=== PATIENT | male | born 1995 | race Caucasian/White ===

== ENCOUNTER 2020-02-11 19:09 | Emergency (ER) | payer BC ==
[2020-02-11] MEDS ORDERED: HYDROmorphone 0.5 MG/0.5 ML Syringe IVPUSH ONE ×2 (19:34→20:38)
[2020-02-11] MEDS ORDERED: Ondansetron 4 MG/2 ML SDV IVPUSH ONE (19:34)
--- NOTE | 2020-02-11 19:39 | EDM.PDOC ---
ED HPI GENERAL MEDICAL PROBLEM - General Chief Complaint: Abdominal Pain Stated Complaint: ABDOMINAL PAIN/DIZZY Time Seen by Provider: 02/11/20 19:33 Source of Information: Reports: Patient History Limitations: Reports: No Limitations - History of Present Illness INITIAL COMMENTS - FREE TEXT/NARRATIVE: 24-year-old male presents to the ED complaining of diffuse abdominal pain pr imarily infraumbilical. He states he woke up feeling fine this morning. He went to work and approximately between 10 and 11:00 this morning he developed chills he had a turn on the heat in his vehicle and then the air conditioning for a while. He did eat a small lunch as he thought it might help with the discomfort. He has associated nausea but no vomiting. Bowels did move earlier this morning and were normal without blood. Patient had a laparoscopic appendectomy done in [place] in August of this year. It was uncomplicated without rupture. He left work early today due to the gradually worsening lower abdominal pain. He reports that he is walking hunched over and slowly like an old man. Difficult to get in and out of the vehicle and every bump in the road hurts. Even a lap belt of his seatbelt did not feel good across his lower abdomen. He feels some discomfort in the suprapubic area with voiding. This is just irritation of the posterior aspect of the dome of his bladder. Onset: Today, Sudden Onset Date: 02/11/20 Onset Time: 10:30 Duration: Hour(s):, Getting Worse Location: Reports: Abdomen (Diffuse abdominal pain worse infraumbilically. Seem to start in the right lower quadrant and then moved across the entire lower abdomen. Also feels that slightly in his flanks bilaterally.) Quality: Reports: Ache, Other Severity: Moderate Improves with: Reports: Rest (8 out of 10.) Worsens with: Reports: Movement Context: Reports: Other (Spontaneous occurrence.). Denies: Activity, Exercise, Lifting, Sick Contact, Trauma Associated Symptoms: Reports: Fever/Chills (Fever and chills starting about 1030 this morning.), Loss of Appetite, Malaise, Nausea/Vomiting. 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 [No Known Home Meds] 02/11/20 [History] Past Medical History - Past Surgical History GI Surgical History: Reports: Appendectomy (Laparoscopic appendectomy done in [place] in August of this year. Uncomplicated) Social & Family History - Living Situation & Occupation Occupation: Employed ED ROS GENERAL - Review of Systems Review Of Systems: See Below Constitutional: Reports: Fever, Chills, Malaise, Weakness, Fatigue, Decreased Appetite HEENT: Reports: No Symptoms Respiratory: Reports: No Symptoms Cardiovascular: Reports: No Symptoms Endocrine: Reports: No Symptoms GI/Abdominal: Reports: Abdominal Pain, Decreased Appetite (See history of present illness), Nausea. Denies: Hematemesis, Hematochezia : Reports: No Symptoms Musculoskeletal: Reports: No Symptoms Skin: Reports: No Symptoms Neurological: Reports: No Symptoms Psychiatric: Reports: No Symptoms Hematologic/Lymphatic: Reports: No Symptoms Immunologic: Reports: No Symptoms ED EXAM, GI/ABD - Physical Exam Exam: See Below Exam Limited By: No Limitations General Appearance: Alert, WD/WN, Mild Distress, Other (Patient is extremity warm to patient. Repeat temperature shows him to be 102.7 degrees. Heart rate 106 and sinus at rest. Respiratory is 20 with O2 sats of 95% room air. BP 117/68.) Eyes: Bilateral: Normal Appearance (No scleral icterus or jaundice appreciated.) Throat/Mouth: Normal Inspection, Normal Lips, Normal Oropharynx Head: Atraumatic, Normocephalic Neck: Normal Inspection, Supple, Non-Tender, Full Range of Motion. No: Carotid Bruit, Lymphadenopathy (L), Lymphadenopathy (R) Respiratory/Chest: No Respiratory Distress, Lungs Clear, Normal Breath Sounds, No Accessory Muscle Use Cardiovascular: Normal Peripheral Pulses, No Edema, No Gallop, No Murmur, No Rub, Tachycardia GI/Abdominal Exam: No Organomegaly, Distended (Mildly distended but dull to percussion.), Guarding, Rebound, Tender (Patient is exquisitely tender to palpation across the entire lower abdomen with rebound tenderness and guarding in both lower quadrants and suprapubically. I.e. acute surgical abdomen), Abnormal Bowel Sounds (Bowel sounds are few and far between but are hyperactive and tinkling suggestive of possible postextraction.) (Male) Exam: No Hernia, Circumcised, Other Back Exam: Normal Inspection (Both testes within normal limits.), Full Range of Motion. No: CVA Tenderness (L), CVA Tenderness (R) Extremities: Normal Inspection, Normal Range of Motion, Non-Tender, No Pedal Edema Neurological: Alert, Oriented, CN II-XII Intact, Normal Cognition, Normal Gait Psychiatric: Normal Affect, Normal Mood Skin Exam: Warm, Dry, Intact, Normal Color, No Rash, Other (He is markedly febrile.) Course - Vital Signs Last Recorded V/S: Last Vital Signs Temp 39.1 C H 02/11/20 20:16 Pulse 106 H 02/11/20 19:23 Resp 20 02/11/20 19:23 BP 117/68 02/11/20 19:23 Pulse Ox 95 02/11/20 19:23 - Orders/Labs/Meds Orders: Active Orders 24 hr Category Date Time Status Gastrointestinal Tube Mgmt [RC] ASDIRECTED Care 02/11/20 21:47 Active Abdomen 1V Flat [CR] Stat Exams 02/11/20 19:36 Taken Abdomen Pelvis w Cont [CT] Stat Exams 02/11/20 19:58 Taken Chest 1V Frontal [CR] Stat Exams 02/11/20 19:34 Taken Chest 1V Frontal [CR] Stat Exams 02/11/20 21:47 Taken Chest 1V-Tube Placement Chk NC [CR] Stat Exams 02/11/20 21:47 Taken CULTURE BLOOD [BC] Stat Lab 02/11/20 20:14 Received CULTURE BLOOD [BC] Stat Lab 02/11/20 20:20 Received Dextrose 5%-0.9% NaCl [Dextrose 5%-Normal Saline] 1,000 Med 02/11/20 19:45 Active ml IV ASDIRECTED Magnesium Sulfate/Water [Magnesium Sulfate in Water Med 02/11/20 22:14 Active Premix] 4 gm Premix Bag 1 bag IV ONETIME Sodium Chloride 0.9% [Saline Flush] Med 02/11/20 20:58 Active 10 ml FLUSH ONETIME PRN Blood Culture x2 Reflex Set [OM.PC] Stat Oth 02/11/20 19:51 Ordered Nasogastric Orogastric Tube Insertion [OM.PC] Routine Oth 09/09/20 21:47 Ordered Medication Orders Dextrose/Sodium Chloride (Dextrose 5%-Normal Saline) 1,000 mls @ 500 mls/hr IV ASDIRECTED [facility] Last Admin: 02/11/20 19:52 Dose: 500 mls/hr Documented by: RAMÓN Magnesium Sulfate 4 gm/ Premix 50 mls @ 12.5 mls/hr IV ONETIME ONE Stop: 02/12/20 02:13 Last Admin: 02/11/20 22:46 Dose: 12.5 mls/hr Documented by: ANDREE Sodium Chloride (Saline Flush) 10 ml FLUSH ONETIME PRN PRN Reason: Keep Vein Open Last Admin: 02/11/20 21:11 Dose: 10 ml Documented by: PATTI Labs: Laboratory Tests 02/11/20 02/11/20 02/11/20 Range/Units 19:45 19:45 19:45 WBC 17.45 H (4.23-9.07) K/mm3 RBC 5.25 (4.63-6.08) M/mm3 Hgb 14.7 (13.7-17.5) gm/dl Hct 44.0 (40.1-51.0) % MCV 83.8 (79.0-92.2) fl MCH 28.0 (25.7-32.2) pg MCHC 33.4 (32.2-35.5) g/dl RDW Std Deviation 40.8 (35.1-43.9) fL Plt Count 302 (163-337) K/mm3 MPV 8.9 L (9.4-12.3) fl Neutrophils % (Manual) 90 H (40-60) % Band Neutrophils % 2 (0-10) % Lymphocytes % (Manual) 4 L (20-40) % Atypical Lymphs % 0 % Monocytes % (Manual) 4 (2-10) % Eosinophils % (Manual) 0 L (0.8-7.0) % Basophils % (Manual) 0 L (0.2-1.2) Platelet Estimate Adequate RBC Morph Comment Normal PT 11.7 (9.7-11.7) SECONDS INR 1.10 APTT 32 H (22-31) SECONDS Sodium 135 L (136-145) mEq/L Potassium 3.6 (3.5-5.1) mEq/L Chloride 99 (98-107) mEq/L Carbon Dioxide 25 (21-32) mEq/L Anion Gap 14.6 (5-15) BUN 19 H (7-18) mg/dL Creatinine 1.4 H (0.7-1.3) mg/dL Est Cr Clr Drug Dosing 85.91 mL/min Estimated GFR (MDRD) > 60 (>60) mL/min BUN/Creatinine Ratio 13.6 L (14-18) Glucose 114 H (74-106) mg/dL Lactic Acid (0.4-2.0) mmol/L Calcium 8.8 (8.5-10.1) mg/dL Magnesium 1.4 L (1.8-2.4) mg/dl Total Bilirubin 0.6 (0.2-1.0) mg/dL AST 12 L (15-37) U/L ALT 20 (16-63) U/L Alkaline Phosphatase 59 (46-116) U/L C-Reactive Protein 12.1 H* (<1.0) mg/dL Total Protein 7.7 (6.4-8.2) g/dl Albumin 3.6 (3.4-5.0) g/dl Globulin 4.1 gm/dL Albumin/Globulin Ratio 0.9 L (1-2) Lipase 52 L (73-393) U/L Urine Color (Yellow) Urine Appearance (Clear) Urine pH (5.0-8.0) Ur Specific [place] (1.005-1.030) Urine Protein (Negative) Urine Glucose (UA) (Negative) Urine Ketones (Negative) Urine Occult Blood (Negative) Urine Nitrite (Negative) Urine Bilirubin (Negative) Urine Urobilinogen (0.2-1.0) Ur Leukocyte Esterase (Negative) Urine RBC (0-5) /hpf Urine WBC (0-5) /hpf Ur Squamous Epith Cells (0-5) /hpf Urine Bacteria (FEW) /hpf Urine Mucus (FEW) /hpf SARS Virus RNA (PCR) (NEGATIVE) 02/11/20 02/11/20 02/11/20 Range/Units 19:58 20:38 22:20 WBC (4.23-9.07) K/mm3 RBC (4.63-6.08) M/mm3 Hgb (13.7-17.5) gm/dl Hct (40.1-51.0) % MCV (79.0-92.2) fl MCH (25.7-32.2) pg MCHC (32.2-35.5) g/dl RDW Std Deviation (35.1-43.9) fL Plt Count (163-337) K/mm3 MPV (9.4-12.3) fl Neutrophils % (Manual) (40-60) % Band Neutrophils % (0-10) % Lymphocytes % (Manual) (20-40) % Atypical Lymphs % % Monocytes % (Manual) (2-10) % Eosinophils % (Manual) (0.8-7.0) % Basophils % (Manual) (0.2-1.2) Platelet Estimate RBC Morph Comment PT (9.7-11.7) SECONDS INR APTT (22-31) SECONDS Sodium (136-145) mEq/L Potassium (3.5-5.1) mEq/L Chloride (98-107) mEq/L Carbon Dioxide (21-32) mEq/L Anion Gap (5-15) BUN (7-18) mg/dL Creatinine (0.7-1.3) mg/dL Est Cr Clr Drug Dosing mL/min Estimated GFR (MDRD) (>60) mL/min BUN/Creatinine Ratio (14-18) Glucose (74-106) mg/dL Lactic Acid 0.8 (0.4-2.0) mmol/L Calcium (8.5-10.1) mg/dL Magnesium (1.8-2.4) mg/dl Total Bilirubin (0.2-1.0) mg/dL AST (15-37) U/L ALT (16-63) U/L Alkaline Phosphatase (46-116) U/L C-Reactive Protein (<1.0) mg/dL Total Protein (6.4-8.2) g/dl Albumin (3.4-5.0) g/dl Globulin gm/dL Albumin/Globulin Ratio (1-2) Lipase (73-393) U/L Urine Color Yellow (Yellow) Urine Appearance Clear (Clear) Urine pH 6.0 (5.0-8.0) Ur Specific [place] 1.015 (1.005-1.030) Urine Protein Negative (Negative) Urine Glucose (UA) Negative (Negative) Urine Ketones Negative (Negative) Urine Occult Blood Trace-lysed H (Negative) Urine Nitrite Negative (Negative) Urine Bilirubin Negative (Negative) Urine Urobilinogen 0.2 (0.2-1.0) Ur Leukocyte Esterase Negative (Negative) Urine RBC 0-5 (0-5) /hpf Urine WBC 0-5 (0-5) /hpf Ur Squamous Epith Cells Not seen (0-5) /hpf Urine Bacteria Occasional (FEW) /hpf Urine Mucus Not seen (FEW) /hpf SARS Virus RNA (PCR) Negative (NEGATIVE) Meds: Medications Generic Name Dose Route Start Last Admin Trade Name Freakanksha PRN Reason Stop Dose Admin Dextrose/Sodium Chloride 1,000 mls @ 500 mls/hr 02/11/20 19:45 02/11/20 19:52 Dextrose 5%-Normal Saline IV 500 mls/hr ASDIRECTED ELIZABETH Administration Magnesium Sulfate 4 gm/ Premix 50 mls @ 12.5 mls/hr 02/11/20 22:14 02/11/20 22:46 IV 02/12/20 02:13 12.5 mls/hr ONETIME ONE Administration Sodium Chloride 10 ml 02/11/20 20:58 02/11/20 21:11 Saline Flush FLUSH 10 ml ONETIME PRN Administration Keep Vein Open Discontinued Medications Generic Name Dose Route Start Last Admin Trade Name Gosia PRN Reason Stop Dose Admin Acetaminophen 975 mg 02/11/20 20:12 02/11/20 20:16 Tylenol PO 02/11/20 20:13 975 mg ONETIME ONE Administration Diatrizoate Meglum/Diatrizoate Sod 90 ml 02/11/20 20:58 02/11/20 21:11 Gastrografin 37% PO 02/11/20 20:59 90 ml ONETIME ONE Administration Hydromorphone HCl 0.5 mg 02/11/20 19:34 02/11/20 19:54 Dilaudid IVPUSH 02/11/20 19:35 0.5 mg ONETIME ONE Administration Hydromorphone HCl 0.5 mg 02/11/20 20:38 02/11/20 20:41 Dilaudid IVPUSH 02/11/20 20:39 0.5 mg ONETIME ONE Administration Hydromorphone HCl 1 mg 02/11/20 21:47 02/11/20 21:55 Dilaudid IVPUSH 02/11/20 21:48 1 mg ONETIME ONE Administration Piperacillin Sod/Tazobactam 100 mls @ 200 mls/hr 02/11/20 21:37 02/11/20 21:52 Sod 4.5 gm/ Sodium Chloride IV 02/11/20 22:06 200 mls/hr ONETIME ONE Administration Iopamidol 100 ml 02/11/20 20:58 02/11/20 21:11 Isovue-300 (61%) IVPUSH 02/11/20 20:59 100 ml ONETIME ONE Administration Lidocaine HCl 10 ml 02/11/20 21:49 02/11/20 22:01 Xylocaine 2% Jelly MUCMEM 02/11/20 21:50 10 ml ONETIME ONE Administration Ondansetron HCl 4 mg 02/11/20 19:34 02/11/20 19:54 Zofran IVPUSH 02/11/20 19:35 4 mg ONETIME ONE Administration - Radiology Interpretation Free Text/Narrative:: 24-year-old male presents to the ED with gradually worsening lower abdominal pain since about 1030 this morning. Started out with fever chills and then gradually worsening diffuse lower abdominal pain. He felt initially it was in his right lower quadrant but subsequently has moved across the entire lower abdomen. He feels pressure on his urinary bladder and appreciates some discomfort with voiding. Perhaps some referred pain to the right testicle at times. Examination reveals him to be acutely febrile. Chest is clear to all station percussion ear nose and throat exam is normal. The abdomen is showing guarding and rebound tenderness on deep palpation in both the right lower quadrant and suprapubic areas of the abdomen compatible with an acute abdomen. With recent appendectomy the source of this infection is unclear. Plan septic work-up will be completed. IV will be D5 normal saline at 500 mils per hour. Given Dilaudid 0.5 mg IV with Zofran 4 mg IV for nausea and pain relief. He will have a KUB first and then the plan will be to go ahead with a CT of the abdomen with oral and IV contrast. - Re-Assessments/Exams Free Text/Narrative Re-Assessment/Exam: 02/11/20 19:59 chest x-ray done portably is completely normal. Cardiac silhouette is normal. Lung parenchyma parenchyma is clear without any infiltrates. No free air identified. KUB reveals a few dilated loops of small bowel in the mid abdomen suspicious for an early ileus. No bowel obstruction is apparent. Patient will be started on oral contrast for CT of the abdomen pelvis with IV and oral contrast. Free Text/Narrative Re-Assessment/Exam: 02/11/20 20:22 White count is elevated at 17.45. Differential pending. Hemoglobin is 14.7 with hematocrit of 44.0. Platelet count 302,000. PT is 11.7 with an INR of 1.10. PTT is 32. Sodium 135 with a potassium of 3.6. Chloride 99 with a bicarb of 25. Anion gap is 14.6. BUN is 19 with a creatinine of 1.4. GFR is greater than 60. Glucose is 114 calcium is 8.8 magnesium is low at 1.4. Liver function is normal. CRP is elevated at 12.1. Total protein is 7.7 with an albumin fraction of 3.6. Lipase is normal at 52. Patient is currently starting a second bottle of oral contrast. I have given him 9 7 5 mg of Tylenol for fever relief. Last temperature check was down to 102.3. 02/11/20 20:38 lower abdominal pain is starting to become worse as the contrast reaches this area. He will be given repeat Dilaudid 0.5 mg IV. 02/11/20 20:59 Differential shows 90% neutrophils and 2% bands cells. Lactic acid is 0.82. CRP is elevated at 12.1. 02/11/20 21:27 CT scan of the abdomen pelvis has been completed with IV and oral contrast. Visualized portions of the lung bases appear to be normal. Cardiac silhouette also appears to be normal. Liver appears to be homogeneous without any intraductal dilatation. Gallbladder is present with no calcified gallstones. Spleen appears to be normal. Pancreas appears to be normal as well. Both kidneys appear normal and no signs of ureteric obstruction evident. There are several mildly dilated loops of small bowel in the mid abdomen which seem to terminate in the right lower quadrant. There appears to be bowel wall thickening in this area of small bowel of unclear etiology. There appears to be a large inflammatory phlegmon around this area. A FEW BUBBLES OF AIR ARE PRESENT SSUGGESTING PERFORATION OF BOWL. I could see no free air. There is a fair amount of stool throughout the right hemicolon and transverse colon. There is no fluid in the pelvis. I will await the radiologist over read of the CT scan before contacting the surgeon. I will also give him 4 g of magnesium sulfate IV over the next several hours 02/11/20 21:29 vRAD over read report is now available. Dense contrast within a small hiatal hernia could be from reflux or dysmotility. The liver is normal in architecture without suspicious abnormality. Gallbladder shows no calcified gallstones and no ductal dilatation. The pancreatic parenchyma is normal in bulk and sharply marginated. Duct is not dilated. Spleen is normal in size with no mass or fluid collection. Adrenal show there are no adrenal masses. Kidneys normal in parenchymal bulk no hydronephrosis or asymmetric perinephric stranding no solid masses or stones. Stomach and bowel Marked mucosal hyperemia and thickening of a several centimeter long segment of the terminal ileum is evident. Dilatation of small bowel proximal to this. This measures approximately 3.7 cm this suggests an element of partial small bowel obstruction. There is suspected to be localized edema and mucosal hyperemia of an additional separate loop of the right lower quadrant distal small bowel. Gas and stool are present within the colon to the rectum. Linear soft tissue density with me within the mesentery of the right lower quadrant connects the abnormality thickened the abnormally thickened small bowel loops. While nonspecific this could indicate enteric enteric fistula. The appendix linear high density line along the base of the cecum is presumed to be due to a suture line. The appendix is not seen. Intraperitoneal space shows a few bubbles of pneumoperitoneum there is a small amount of ascites. No aneurysm no enlarged lymph nodes no bladder wall thickening mass or luminal calculus. No soft tissue masses are apparent soft tissue gas of significance or hernia. Pression is abnormal tandem loops of small bowel in the distal ileum area are suspected to be from Crohn's disease. There is pneumoperitoneum probably from small bowel perforation in the right lower quadrant. 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 Suspect early partial small bowel obstruction. 02/11/20 21:50: I did speak with our surgeon on-call Dr. Chuy Manzanares and he is for her to a larger center where he can be admitted for a lengthy period of time as this is going to be a complicated process. Nasogastric tube will be placed due to development of partial small bowel obstruction. He will be given Zosyn 4.5 grams intravenously at this time. Will repeat Dilaudid 100 mg IV for pain relief. I will looking for a bed in [place] for him. 02/11/20 23:19 patient has been accepted through the ED at [facility] in [place] per Dr. Archie Ferreira. He will be transferred to that facility per ground ambulance. Nasogastric tube has been placed and is on intermittent low suction. Chest x-ray reveals the nasogastric tube to be below the diaphragm in the stomach. Departure - Departure Time of Disposition: 23:20 Disposition: DC/Tfer to [facility] 02 Condition: Serious Clinical Impression: Acute abdomen, Partial small bowel obstruction, Intra-abdominal free air of unknown etiology - Discharge Information *PRESCRIPTION DRUG MONITORING PROGRAM REVIEWED*: Not Applicable *COPY OF PRESCRIPTION DRUG MONITORING REPORT IN PATIENT JAMIN: Not Applicable Referrals: PCP,None [Primary Care Provider] - Forms: ED Department Discharge Sepsis Event Note (ED) - Evaluation Sepsis Screening Result: No Definite Risk - Focused Exam Vital Signs: Vital Signs Temp Temp Pulse Resp BP Pulse Ox 02/11/20 20:16 39.1 C H 02/11/20 19:36 39.3 C H 02/11/20 19:23 37.4 C 106 H 20 117/68 95 - My Orders Last 24 Hours: My Active Orders 02/11/20 19:34 Chest 1V Frontal [CR] Stat 02/11/20 19:36 Abdomen 1V Flat [CR] Stat 02/11/20 19:45 Dextrose 5%-0.9% NaCl [Dextrose 5%-Normal Saline] 1,000 ml IV ASDIRECTED 02/11/20 19:51 Blood Culture x2 Reflex Set [OM.PC] Stat 02/11/20 19:58 Abdomen Pelvis w Cont [CT] Stat 02/11/20 20:14 CULTURE BLOOD [BC] Stat 02/11/20 20:20 CULTURE BLOOD [BC] Stat 02/11/20 20:58 Sodium Chloride 0.9% [Saline Flush] 10 ml FLUSH ONETIME PRN 02/11/20 21:47 Gastrointestinal Tube Mgmt [RC] ASDIRECTED Chest 1V Frontal [CR] Stat Chest 1V-Tube Placement Chk NC [CR] Stat Nasogastric Orogastric Tube Insertion [OM.PC] Routine 02/11/20 22:14 Magnesium Sulfate/Water [Magnesium Sulfate in Water Premix] 4 gm Premix Bag 1 bag IV ONETIME - Assessment/Plan Last 24 Hours: My Active Orders 02/11/20 19:34 Chest 1V Frontal [CR] Stat 02/11/20 19:36 Abdomen 1V Flat [CR] Stat 02/11/20 19:45 Dextrose 5%-0.9% NaCl [Dextrose 5%-Normal Saline] 1,000 ml IV ASDIRECTED 02/11/20 19:51 Blood Culture x2 Reflex Set [OM.PC] Stat 02/11/20 19:58 Abdomen Pelvis w Cont [CT] Stat 02/11/20 20:14 CULTURE BLOOD [BC] Stat 02/11/20 20:20 CULTURE BLOOD [BC] Stat 02/11/20 20:58 Sodium Chloride 0.9% [Saline Flush] 10 ml FLUSH ONETIME PRN 02/11/20 21:47 Gastrointestinal Tube Mgmt [RC] ASDIRECTED Chest 1V Frontal [CR] Stat Chest 1V-Tube Placement Chk NC [CR] Stat Nasogastric Orogastric Tube Insertion [OM.PC] Routine 02/11/20 22:14 Magnesium Sulfate/Water [Magnesium Sulfate in Water Premix] 4 gm Premix Bag 1 bag IV ONETIME
[2020-02-11] MEDS ORDERED: Dextrose 5%-0.9% NaCl 1,000 ML IV SCH (19:45)
[2020-02-11] MEDS ORDERED: Acetaminophen 325 MG Tab PO ONE (20:12)
[2020-02-11] MEDS ORDERED: Sodium Chloride 0.9% 10 ML Syringe FLUSH PRN (20:58)
[2020-02-11] MEDS ORDERED: Iopamidol 612 MG/ML 100 ML Bottle IVPUSH ONE (20:58)
[2020-02-11] MEDS ORDERED: Diatrizoate Meglumine/Diatrizoate Sodium 37% 120 ML Bottle PO ONE (20:58)
[2020-02-11] MEDS ORDERED: Piperacillin/Tazobactam 4.5 GM in Sodium Chloride 0.9% 100 ML IV ONE (21:37)
[2020-02-11] MEDS ORDERED: HYDROmorphone 1 MG/ML Syringe IVPUSH ONE (21:47)
[2020-02-11] MEDS ORDERED: Lidocaine 2% Jelly 10 ML Urojet MUCMEM ONE (21:49)
[2020-02-11] MEDS ORDERED: Magnesium Sulfate/Water 4 GM in Premix Bag 1 BAG IV ONE (22:14)
[2020-02-11] MEDS ORDERED: LORazepam 2 MG/ML SDV IV ONE (22:20)
[2020-02-11] MEDS ORDERED: Lactated Ringers 1,000 ML ONE (23:37)
[2020-02-11] MEDS ORDERED: Lactated Ringers 1,000 ML IV SCH (23:45)
--- NOTE | 2020-02-12 08:06 | CR ---
Chest: Portable view of the chest was obtained. Comparison: No prior chest imaging is available. Heart size and mediastinum are normal. Lungs are clear. Bony structures are unremarkable. Impression: 1. Nothing acute is seen on portable chest x-ray. Diagnostic code #1 This report was dictated in MDT
--- NOTE | 2020-02-12 08:07 | CR ---
Chest: Frontal view of the chest was obtained. Comparison: Prior chest x-ray performed earlier on the same day (7:33 PM). Tubing is seen crossing through the mediastinum into the stomach. Position within the stomach is not appreciated on this study due to contrast within the stomach from recent CT exam. Lungs are clear. Heart size and mediastinum are normal. Bony structures are unremarkable. Impression: 1. Tubing which terminates within the stomach although actual position is hidden due to stomach contrast. No abnormal coiling of the tubing is seen. 2. Nothing acute is otherwise appreciated. Diagnostic code #2 This report was dictated in MDT
--- NOTE | 2020-02-12 08:08 | CR ---
Chest: Frontal view centered to the diaphragms were obtained. Contrast is noted within the stomach. Nasogastric tube is seen. Tip lies slightly past the gastroesophageal junction within the proximal stomach. Visualized lung bases are clear. Bony structures are grossly intact. Impression: 1. Tip of nasogastric tube within the proximal stomach. Diagnostic code #2 This report was dictated in MDT
--- NOTE | 2020-02-12 08:26 | CR ---
Abdomen: Supine view of the abdomen was obtained. Comparison: No previous abdominal x-ray. Bowel gas pattern appears normal. No abnormal calcifications or soft tissue abnormality is seen. No acute bony abnormality is appreciated. Impression: 1. Nothing acute is seen on supine abdominal x-ray. Diagnostic code #1 This report was dictated in MDT
--- NOTE | 2020-02-12 08:34 | CT ---
CT abdomen and pelvis Technique: Multiple axial sections were obtained from above the dome of the diaphragm inferiorly through the pubic symphysis. Intravenous contrast was utilized. Oral contrast has also been given. Oral contrast remains within the stomach and proximal small bowel. Findings: Bowel wall thickening with surrounding inflammatory change is identified within the distal ileum and terminal ileum. Appendix is not visualized with probable appendectomy clips being seen. There is soft tissue density between the terminal ileum and additional ileal loop with this ileal loop showing bowel wall thickening and some luminal narrowing. Difficult to exclude an enteric-enteric fistula. Small hiatal hernia is noted with gastroesophageal reflux of contrast. Visualized lung bases show nothing acute. Liver and spleen shows no focal abnormality. Adrenal glands show no nodule. Pancreas shows no discrete abnormality. Gallbladder contains no calcified gallstones. Aorta shows no aneurysm. No retroperitoneal adenopathy or mesenteric abnormalities are seen. No pelvic mass or adenopathy is seen. Slight increased fluid within the dependent pelvis is seen likely relating to the terminal ileum process. Bone window settings were reviewed which shows no acute osseous finding. Small fat-containing umbilical hernia is noted. Small amount of free air is noted within the abdomen likely from small perforation involving the abnormal bowel.. Impression: 1. Bowel wall thickening with surrounding inflammatory change involving the distal ileum and terminal ileum. Small amount of free air compatible with bowel perforation. 2. 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 This ileal loop shows some luminal narrowing which may be causing mild proximal partial small bowel obstruction. 3. Fluid within the pelvis likely reactive. 4. Hiatal hernia and gastroesophageal reflux. Note: Constellation of above findings within the bowel have a pattern typical of Crohn's disease. Diagnostic code #3 This report was dictated in MDT I agree with preliminary report from ron, finalized on 02/11/20, 10:26 PM [employer] Daylight Time
== END 2020-02-11 23:45 ==
LOC: JD.ED 19:09
DX: K56.600 Partial intestinal obstruction, unspecified as to cause (principal); R93.5 Abnormal findings on diagnostic imaging of other abdominal regions, including retroperitoneum; Z20.828 Contact with and (suspected) exposure to other viral communicable diseases
CPT/HCPCS: 36415; 43752; 71045; 74018; 74177; 80053; 81001; 83605; 83690; 83735; 85007; 85027; 85610; 85730; 86140; 87040; 87635; 96361; 96365; 96367; 96375; 96376; 99285; A9270; J1170; J2405; J2543; J3475; J7042; J7050; J7120; Q9963; Q9967; U0002